=== PATIENT | male | born 1970 | race Hispanic/Latino ===

== ENCOUNTER 2016-12-23 01:06 | Emergency (ER) | payer MEDICAID ==
[2016-12-23 01:16] VITALS: BP 136/84; PULSE 79; RESP 18; TEMP 97.5; O2SAT 98
--- NOTE | 2016-12-23 03:01 | ED PDOC ---
HPI: Psych/Substance Abuse Time Seen by Provider: 12/23/16 01:14 Chief Complaint (Nursing): Alcohol Ingestion Chief Complaint (Provider): Alcohol Ingestion History Per: Patient History/Exam Limitations: intoxication Onset/Duration Of Symptoms: Days (x1) Current Symptoms Are (Timing): Still Present Modifying Factor(s): Alcohol Additional Complaint(s): 42 y/o male brought to the ED by EMS for alcohol intoxication. Patient offers no physical complaints. History limited due to patient's condition. PMD: None Past Medical History Reviewed: Historical Data, Nursing Documentation, Vital Signs, Unable To Obtain Vital Signs: Last Vital Signs Temp 97.5 F L 12/23/16 01:13 Pulse 79 12/23/16 01:13 Resp 18 12/23/16 01:13 BP 136/84 12/23/16 01:13 Pulse Ox 98 12/23/16 01:13 - Family History Family History: States: No Known Family Hx - Allergies Allergies/Adverse Reactions: Allergies Allergy/AdvReac Type Severity Reaction Status Date / Time No Known Allergies Allergy Verified 12/23/16 01:16 Review of Systems Review Of Systems: ROS cannot be obtained secondary to pt's inabilty to answer questions. Physical Exam - Reviewed Nursing Documentation Reviewed: Yes Vital Signs Reviewed: Yes - Physical Exam Appears: Positive for: Non-toxic, No Acute Distress Head Exam: Positive for: ATRAUMATIC, NORMAL INSPECTION, NORMOCEPHALIC Skin: Positive for: Normal Color, Warm, Dry Eye Exam: Positive for: EOMI, Normal appearance, PERRL Neck: Positive for: Normal, Painless ROM, Supple Cardiovascular/Chest: Positive for: Regular Rate, Rhythm. Negative for: Murmur Respiratory: Positive for: Normal Breath Sounds. Negative for: Respiratory Distress Pulses-Radial (L): 2+ Pulses-Radial (R): 2+ Extremity: Positive for: Normal ROM, Capillary Refill (< 2 sec). Negative for: Pedal Edema, Deformity Neurologic/Psych: Positive for: Alert (and awake), Gait (Unsteady), Other ( Slurred speech) - ECG O2 Sat by Pulse Oximetry: 98 (RA) Pulse Ox Interpretation: Normal Medical Decision Making Medical Decision Making: Initial Impression: Alcohol intoxication Time: 01:27 Initial Plan: --Alcohol serum --Urine drug screen Scribe Attestation: Documented by Adelita Arboleda, acting as a scribe for José Bunn MD Provider Scribe Attestation: All medical record entries made by the Scribe were at my direction and personally dictated by me. I have reviewed the chart and agree that the record accurately reflects my personal performance of the history, physical exam, medical decision making, and the department course for this patient. I have also personally directed, reviewed, and agree with the discharge instructions and disposition. Disposition - Clinical Impression Clinical Impression: Alcohol abuse with intoxication - Patient ED Disposition Is Patient to be Admitted: Transfer of Care Counseled Patient/Family Regarding: Studies Performed, Diagnosis - Disposition Disposition: Transfer of Care Disposition Time: 07:00 Condition: STABLE Forms: [employer] (Czech) Patient Signed Over To: Arnold Nash III Handoff Comments: pending clinical sobriety
== END 2016-12-23 05:57 | disposition home or self-care (01) ==
LOC: EDBD 01:06 → H.ER 01:06
DX: F10.129 Alcohol abuse with intoxication, unspecified (principal)

== ENCOUNTER 2017-03-05 01:16 | Emergency (ER) | payer MEDICAID ==
[2017-03-05 01:31] VITALS: BMI 25.1
[2017-03-05 01:48] VITALS: BP 108/74; PULSE 89; RESP 18; TEMP 97.6; O2SAT 98
[2017-03-05 02:11] LABS: BASO # 0.1 K/uL (0.0-0.2); BASO % 1.3 % (0.0-2.0); EOS # 0.2 K/uL (0.0-0.7); EOS % 3.3 % (0.0-4.0); HEMOGLOBIN 13.8 g/dL (12.0-18.0); LYMPH # 2.4 K/uL (1.0-4.3); MEAN CORPUSCULAR HEMOGLOBIN 35.6 pg (27.0-31.0); MEAN CORPUSCULAR HGB CONC 33.5 g/dL (33.0-37.0); MEAN PLATELET VOLUME 8.6 fl (7.2-11.7); MONO # 0.5 K/uL (0.0-0.8); MONO % 7.2 % (0.0-10.0); NEUT # 3.8 K/uL (1.8-7.0); NEUT % 54.2 % (50.0-75.0); NRBC % 0.2 % (0.0-0.0); RBC 3.88 Mil/uL (4.40-5.90); RED CELL DISTRIBUTION WIDTH 14.1 % (11.5-14.5)
[2017-03-05 02:28] LABS: ALB/GLOB RATIO 1.2 (1.0-2.1); ALBUMIN 4.6 g/dL (3.5-5.0); ALT/SGPT 41 U/L (21-72); AST/SGOT 39 U/L (17-59); BLOOD UREA NITROGEN 13 mg/dl (9-20); CALCIUM 8.9 mg/dL (8.4-10.2); GFR AFRICAN-AMERICAN > 60; GFR NON-AFRICAN AMERICAN > 60
[2017-03-05 03:38] LABS: MEAN CELL VOLUME 106.4 fl (80.0-94.0)
--- NOTE | 2017-03-05 04:03 | ED PDOC ---
HPI: Psych/Substance Abuse Time Seen by Provider: 03/05/17 01:28 Chief Complaint (Nursing): Substance Abuse Chief Complaint (Provider): substance abuse History Per: Patient, EMS Additional History Per: Patient, EMS Additional Complaint(s): 46 y/o male brought in by EMS for substance abuse. As per EMS, patient told them he drank, used PCP, and cocaine. Patient awake, talking and laughing to self. HPI limited due to current state of intoxication. Past Medical History Reviewed: Historical Data, Nursing Documentation, Vital Signs Vital Signs: Last Vital Signs Temp 97.6 F 03/05/17 01:47 Pulse 89 03/05/17 01:47 Resp 18 03/05/17 01:47 BP 108/74 03/05/17 01:47 Pulse Ox 98 03/05/17 01:47 - Medical History PMH: Asthma (PT DENIES), Depression, Hepatitis (Hep C?), Schizophrenia (PT DENIES HX) Denies: Diabetes, HIV, HTN, Seizures, Sexually Transmitted Disease - Family History Family History: States: Unknown Family Hx - Immunization History Hx Tetanus Toxoid Vaccination: (refusing to answer) Hx Influenza Vaccination: (refusing to answer) Hx Pneumococcal Vaccination: (refusing to answer) - Home Medications Home Medications: Ambulatory Orders Medication Instructions Recorded No Known Home Med 08/24/16 - Allergies Allergies/Adverse Reactions: Allergies Allergy/AdvReac Type Severity Reaction Status Date / Time No Known Allergies Allergy Verified 08/24/16 08:04 Review of Systems ROS Statement: Except As Marked, All Systems Reviewed And Found Negative Physical Exam - Reviewed Nursing Documentation Reviewed: Yes Vital Signs Reviewed: Yes - Physical Exam Appears: Positive for: Well, Non-toxic, No Acute Distress Head Exam: Positive for: ATRAUMATIC, NORMAL INSPECTION, NORMOCEPHALIC Skin: Positive for: Normal Color Eye Exam: Positive for: Normal appearance ENT: Positive for: Normal ENT Inspection Cardiovascular/Chest: Positive for: Regular Rate, Rhythm Respiratory: Positive for: Normal Breath Sounds Gastrointestinal/Abdominal: Positive for: Normal Exam Back: Positive for: Normal Inspection Extremity: Positive for: Normal ROM Neurologic/Psych: Positive for: Alert, Other (slurred speech, +AOB) - Laboratory Results Result Diagrams: 03/05/17 02:07 03/05/17 02:07 - ECG O2 Sat by Pulse Oximetry: 98 - Progress ED Course And Treament: accucheck, labs, urine Disposition - Clinical Impression Clinical Impression: Polysubstance abuse - Patient ED Disposition Is Patient to be Admitted: No - Disposition Disposition: Transfer of Care Disposition Time: 06:00 Condition: STABLE Instructions: Polysubstance Abuse (ED) Forms: [employer] (Fijian) Patient Signed Over To: José Bunn Handoff Comments: pending sobriety
== END 2017-03-05 06:05 | disposition home or self-care (01) ==
LOC: H.ER 01:16
DX: F19.10 Other psychoactive substance abuse, uncomplicated (principal); B19.20 Unspecified viral hepatitis C without hepatic coma; F20.9 Schizophrenia, unspecified; F32.9 Major depressive disorder, single episode, unspecified

== ENCOUNTER 2017-05-11 00:54 | Emergency (ER) | payer MEDICAID ==
[2017-05-11 01:51] VITALS: BMI 86.0
[2017-05-11 02:12] VITALS: RESP 16; TEMP 98
[2017-05-11 02:54] LABS: BASO # 0.1 K/uL (0.0-0.2); BASO % 0.8 % (0.0-2.0); EOS # 0.2 K/uL (0.0-0.7); EOS % 3.1 % (0.0-4.0); LYMPH # 2.4 K/uL (1.0-4.3); MEAN CELL VOLUME 104.1 fl (80.0-94.0); MEAN CORPUSCULAR HEMOGLOBIN 35.2 pg (27.0-31.0); MEAN CORPUSCULAR HGB CONC 33.8 g/dL (33.0-37.0); MEAN PLATELET VOLUME 8.7 fl (7.2-11.7); MONO # 0.4 K/uL (0.0-0.8); MONO % 6.7 % (0.0-10.0); NEUT # 3.5 K/uL (1.8-7.0); NEUT % 52.4 % (50.0-75.0); NRBC % 0.1 % (0.0-0.0); RBC 3.98 Mil/uL (4.40-5.90); RED CELL DISTRIBUTION WIDTH 13.9 % (11.5-14.5); WHITE BLOOD COUNT 6.6 K/uL (4.8-10.8)
[2017-05-11 03:03] LABS: ACETAMINOPHEN < 10.0 ug/ml (10.0-30.0); SALICYLATE < 1.0 mg/dl
[2017-05-11 03:04] LABS: BLOOD UREA NITROGEN 13 mg/dl (9-20); CALCIUM 8.7 mg/dL (8.4-10.2); GFR AFRICAN-AMERICAN > 60; GFR NON-AFRICAN AMERICAN > 60
--- NOTE | 2017-05-11 03:26 | ED PDOC ---
HPI: Psych/Substance Abuse Time Seen by Provider: 05/11/17 00:57 Chief Complaint (Nursing): Alcohol Ingestion Chief Complaint (Provider): Alcohol Ingestion ED Caveat: Intoxicated History Per: Patient History/Exam Limitations: intoxication Suicide/Self Injury Attempted (Context): None Modifying Factor(s): Alcohol Additional History Per: Prior Records Additional Complaint(s): 46 year old male brought in by EMS presents to ED due to alcohol intoxication. As per EMS, patient was found intoxicated in the streets. Upon ED arrival, patient became agitated and incoherent, acting violently towards the staff and presenting as a danger to himself and others. Patient was sedated and restrained for the safety of others and to relieve agitation. PCP: Unknown Past Medical History Reviewed: Historical Data, Nursing Documentation, Vital Signs Vital Signs: Last Vital Signs Temp 98.0 F 05/11/17 02:10 Pulse 80 05/11/17 02:10 Resp 16 05/11/17 02:10 BP 124/89 05/11/17 02:10 Pulse Ox 100 05/11/17 02:10 - Medical History PMH: Asthma (PT DENIES), Depression, Hepatitis (Hep C?), Schizophrenia (PT DENIES HX) Denies: Diabetes, HIV, HTN, Seizures, Sexually Transmitted Disease - Family History Family History: States: Unknown Family Hx - Social History Alcohol: > 2 Drinks/Day - Immunization History Hx Tetanus Toxoid Vaccination: (refusing to answer) Hx Influenza Vaccination: (refusing to answer) Hx Pneumococcal Vaccination: (refusing to answer) - Home Medications Home Medications: Ambulatory Orders Medication Instructions Recorded No Known Home Med 08/24/16 - Allergies Allergies/Adverse Reactions: Allergies Allergy/AdvReac Type Severity Reaction Status Date / Time No Known Allergies Allergy Verified 08/24/16 08:04 Review of Systems Review Of Systems: ROS cannot be obtained secondary to pt's inabilty to answer questions. (due to intoxicated state) Physical Exam - Reviewed Nursing Documentation Reviewed: Yes Vital Signs Reviewed: Yes - Physical Exam Appears: Positive for: Non-toxic, No Acute Distress (smells of alcohol) Skin: Positive for: Normal Color, Warm, Dry Cardiovascular/Chest: Positive for: Regular Rate, Rhythm. Negative for: Murmur Respiratory: Positive for: Normal Breath Sounds. Negative for: Respiratory Distress Neurologic/Psych: Positive for: Alert, Gait (unsteady). Negative for: Oriented - Laboratory Results Result Diagrams: 05/11/17 02:38 05/11/17 02:38 - ECG O2 Sat by Pulse Oximetry: 100 (RA) Pulse Ox Interpretation: Normal Medical Decision Making Medical Decision Makin Initial impression: EtOH intoxication Initial plan: * Acetaminophen * EtOH serum * Labs * UDrug Screen * Salicylate * Ativan 2mg IM * Haldol 5mg IM * 1:1 OBS * Restraints: violent * UA * Re-eval 0530 Alcohol level: 259 0600 UTox reviewed: indicative of polysubstance abuse. 0700 Upon re-evaluation patient is awake, alert, and oriented x3. Patient is ambulating within his room and is stable for discharge. Patient counseled against substance abuse. Scribe Attestation: Documented by Ashwini Marcano acting as a scribe for Mackenzie Feng MD. Scribe Attestation: All medical record entries made by the Scribe were at my direction and personally dictated by me. I have reviewed the chart and agree that the record accurately reflects my personal performance of the history, physical exam, medical decision making, and the department course for this patient. I have also personally directed, reviewed, and agree with the discharge instructions and disposition. Disposition - Clinical Impression Clinical Impression: Alcohol abuse with intoxication, Polysubstance abuse - Patient ED Disposition Is Patient to be Admitted: No Counseled Patient/Family Regarding: Studies Performed, Diagnosis, Need For Followup - Disposition Referrals: [facility] [Outside] [facility] [Outside] Disposition: Routine/Home Disposition Time: 06:35 Condition: IMPROVED Additional Instructions: follow up with your primary doctor in 1-2 days return to the ED with any worsening or concerning symptoms Instructions: Alcohol Abuse and Alcoholism (DC), Polysubstance Abuse (DC) Forms: [employer] (Estonian)
[2017-05-11 05:38] LABS: SQUAMOUS EPITHIAL 1 /hpf (0-5); URINE BILIRUBIN NEGATIVE (NEGATIVE); URINE BLOOD NEGATIVE (NEGATIVE); URINE CLARITY SLIGHTY-CLOUDY (Clear); URINE COLOR STRAW (YELLOW); URINE GLUCOSE (UA) NEG (Normal); URINE LEUKOCYTE ESTERASE NEG Leu/uL (Negative); URINE PROTEIN NEGATIVE (NEGATIVE); URINE UROBILINOGEN 0.2-1.0 mg/dL (0.2-1.0)
[2017-05-11 06:05] LABS: BARBITURATES, UR NEGATIVE (NEGATIVE); BENZODIAZEPINES, UR NEGATIVE (NEGATIVE); OPIATES, UR NEGATIVE (NEGATIVE); PHENCYCLIDINE, UR POSITIVE (NEGATIVE)
[2017-05-11 07:03] VITALS: BP 128/70; PULSE 74
[2017-05-12 05:36] VITALS: O2SAT 100
== END 2017-05-11 07:03 | disposition home or self-care (01) ==
LOC: H.ER 00:54
DX: F10.129 Alcohol abuse with intoxication, unspecified (principal); Y90.8 Blood alcohol level of 240 mg/100 ml or more; F19.10 Other psychoactive substance abuse, uncomplicated; Z86.59 Personal history of other mental and behavioral disorders; B19.20 Unspecified viral hepatitis C without hepatic coma
CPT/HCPCS: 80048; 80320; 80324; 80329; 80345; 80346; 80349; 80353; 80358; 80361; 81003; 83992; 85025; 96372; 99283; J1630; J2060